=== PATIENT | male | born 2000 | race Caucasian/White ===

== ENCOUNTER → 2023-11-14 | Emergency (ER) | payer SELFPAY ==
[~2023-11-14] MED LIST: DOXYCYCLINE 100 MG CAP PO ONE; IBUPROFEN 400 MG TAB ONE; LIDOCAINE 1% 20 ML MDV ONE; ONDANSETRON 4 MG (ODT) TAB ONE; metroNIDAZOLE 500 MG TABLET ONE
--- NOTE | 2023-11-14 20:29 | EDPHYS ---
Physician Documentation [facility] Name: Yumiko Ayala Age: 23 yrs Sex: Male : 2000 Arrival Date: 11/14/2023 Time: 19:00 Bed 16 Private MD: ED Physician Kaleb Jones HPI: 11/14 19:12 This 23 yrs old Male presents to ER via Unassigned with complaints of Finger sp4 Problem. 19:19 Left thumb nail puncture wound by the shrimp on Wednesday 6 days ago. . sp4 20:56 23-year-old male presents with a left thumb pain, 6 days ago left thumbnail was sp4 punctured by a shrimp horn and caused infected puncture wound with pain some swelling and pocket of purulence under the thumbnail. . Historical: - Allergies: 19:13 No Known Allergies; cm10 - Home Meds: 19:13 None [Active]; cm10 - PMHx: 19:13 None; cm10 - PSHx: 19:13 None; cm10 - Immunization history:: Adult Immunizations unknown. - Social history:: Smoking status: Reported history of juuling and/or vaping. - Family history:: not pertinent. ROS: 20:56 Constitutional: Negative for fever, chills, and weight loss, MS/Extremity: Positive sp4 Left thumb pain and swelling , left thumb nail puncture wound with infection 20:56 All other systems are negative, Exam: 20:56 Constitutional: This is a well developed, well nourished patient who is awake, alert, sp4 and in no acute distress. Head/Face: Normocephalic, atraumatic. Eyes: Pupils equal round and reactive to light, extra-ocular motions intact. Lids and lashes normal. Conjunctiva and sclera are not injected. Cornea within normal limits. Periorbital areas with no swelling, redness, or edema. ENT: Nares patent. No nasal discharge, no septal abnormalities noted. Tympanic membranes are normal and external auditory canals are clear. Oropharynx with no redness, swelling, or masses, exudates, or evidence of obstruction, uvula midline. Mucous membranes moist. Neck: Trachea midline, no thyromegaly or masses palpated, and no cervical lymphadenopathy. Supple, full range of motion without nuchal rigidity, or vertebral point tenderness. Chest/axilla: Normal chest wall appearance and motion. Nontender with no deformity. No lesions are appreciated. Cardiovascular: Regular rate and rhythm with a normal S1 and S2. No gallops, murmurs, or rubs. Normal PMI, no JVD. No pulse deficits. Respiratory: Lungs have equal breath sounds bilaterally, clear to auscultation and percussion. No rales, rhonchi or wheezes noted. No increased work of breathing, no retractions or nasal flaring. Abdomen/GI: Soft, non-tender, with normal bowel sounds. No distension or tympany. No guarding or rebound. No evidence of tenderness throughout. Back: No spinal tenderness. No costovertebral tenderness. There is sacral decubitus ulcer that is covered by the wound VAC. Skin: Warm, dry with normal turgor. Normal color with no rashes, no lesions, and no evidence of cellulitis. MS/ Extremity: Pulses equal, no cyanosis. Neurovascular intact. Full, normal range of motion. Left thumbnail with a puncture wound and pocket of purulence underneath left thumbnail. Associated pain and tenderness of the left thumb Neuro: Awake and alert, GCS 15, oriented to person, place, time, and situation. Cranial nerves II-XII grossly intact. Motor strength 5/5 in all extremities. Sensory grossly intact. Psych: Awake, alert, with orientation to person, place and time. Behavior, mood, and affect are within normal limits Vital Signs: 19:12 BP 167 / 82; Pulse 84; Resp 18; Temp 99.5; Pulse Ox 99% on R/A; Weight 83.01 kg; Height cm10 5 ft. 9 in. ; Pain 7/10; 19:12 Body Mass Index 27.02 (83.01 kg, 175.26 cm) cm10 19:12 Pain Scale: Adult cm10 Procedures: 20:25 I \T\ D: Incision and drainage was performed for an abscess of the left Left thumb nail sp4 puncture wound with shrimp horn under the thumb nail and small focus of purulence under the Left thumb nail, Thumb nail removal with digital Lidocaine block Prepped with Betadine, Anesthetized with 10 ml's 1% Lidocaine. Incised with Scissors and thumb nail removal with hemostats . Drained small amount purulent fluid. Abscess cavity explored. Packed with Kerlix Wrap . Dressing: sterile 4x4 gauze, Kerlix dressing the patient tolerated the procedure well, Wound care instructions provided . MDM: 19:13 Patient medically screened. sp4 20:25 Differential Diagnosis altered mental status, sepsis, flu, Thumb abscess , puncture sp4 wound with infection . Data reviewed: vital signs, nurses notes. ED course: Patient actually had a small piece of cerumen performed stuck under the left thumbnail. This has because infectious process under the left thumbnail. Thumbnail was removed and a small piece of show important was evacuated as well as irrigation provided with a small purulent pocket. Patient advised to perform dressing changes daily will provide prescription for Flagyl and doxycycline for the next 10 days. 11/14 19:18 Order name: Dressing - Wound; Complete Time: 19:50 sp4 11/14 19:18 Order name: Gloves, Sterile; Complete Time: 19:50 sp4 11/14 19:18 Order name: Setup Suture Tray; Complete Time: 19:50 sp4 Administered Medications: 19:56 Drug: metroNIDAZOLE PO 500 mg PO once Route: PO; rv 20:28 Follow up: Response: No adverse reaction rv 19:56 Drug: Ibuprofen PO 800 mg PO once Route: PO; rv 20:27 Follow up: Response: No adverse reaction rv 19:56 Drug: Ondansetron PO 4 mg PO once Route: PO; rv 20:27 Follow up: Response: No adverse reaction rv 19:57 Drug: Doxycycline PO 100 mg PO once Route: PO; rv 20:28 Follow up: Response: No adverse reaction rv 20:28 Drug: Lidocaine Infiltration (1 %) 20 ml 20 ml Infiltration once; to bedside {Note: rv admoinistered by Dr Jones.} Volume: 20 ml; Route: Infiltration; Disposition Summary: 11/14/23 20:29 Discharge Ordered Notes: Location: Home sp4 Problem: new sp4 Symptoms: have improved sp4 Condition: Stable sp4 Diagnosis - Acute paronychia left thumbnail, left thumbnail puncture wound with infection sp4 Followup: sp4 - With: Tu Del Toro DO - When: 7 - 10 days - Reason: Recheck today's complaints Discharge Instructions: - Discharge Summary Sheet sp4 - Paronychia, [id number] sp4 Forms: - Patient Portal Instructions sp4 Prescriptions: - Flagyl 500 mg Oral Tablet - take 1 tablet ORAL route every 8 hours for 10 days; 30 tablet; Refills: 0, sp4 Product Selection Permitted - Ibuprofen 800 mg Oral Tablet - take 1 tablet ORAL route every 8 hours As needed take with food; 30 tablet; sp4 Refills: 0, Product Selection Permitted - Zofran 4 mg Oral tablet - take 1 tablet ORAL route every 6 hours As needed PRN nausea; 30 tablet; sp4 Refills: 0, Product Selection Permitted - Doxycycline Monohydrate 100 mg Oral Tablet - take 1 tablet ORAL route every 12 hours for 10 days; 20 tablet; Refills: 0, sp4 Product Selection Permitted Signatures: Ben Cortés RN RN rv Kaleb Jones MD MD sp4 Judy Ramos RN RN cm10
--- NOTE | 2023-11-14 20:29 | ER ---
Nurse's Notes [facility] Name: Yumiko Ayala Age: 23 yrs Sex: Male : 2000 Arrival Date: 11/14/2023 Time: 19:00 Bed 16 Private MD: Diagnosis: Acute paronychia left thumbnail, left thumbnail puncture wound with infection Presentation: 11/14 19:12 Chief complaint: Patient states: Shell of shrimp stabbed through nail of left thumb on cm10 Wednesday. Pt reports increased pain. Coronavirus screen: Vaccine status: Patient reports being unvaccinated. Client denies travel out of the [place] in the last 14 days. Ebola Screen: Patient denies travel to an Ebola-affected area in the 21 days before illness onset. No symptoms or risks identified at this time. Initial Sepsis Screen: Does the patient meet any 2 criteria? No. Patient's initial sepsis screen is negative. Does the patient have a suspected source of infection? No. Patient's initial sepsis screen is negative. Risk Assessment: Do you want to hurt yourself or someone else? Patient reports no desire to harm self or others. Onset of symptoms was November 14, 2023. 19:12 Method Of Arrival: Ambulatory cm10 19:12 Acuity: ANGEL 4 cm10 Triage Assessment: 19:14 General: Appears in no apparent distress. comfortable, Behavior is calm, cooperative. cm10 Pain: Complains of pain in left thumbnail Pain does not radiate. Pain currently is 7 out of 10 on a pain scale. Quality of pain is described as sharp, shooting. EENT: No deficits noted. No signs and/or symptoms were reported regarding the EENT system. Neuro: No deficits noted. Level of Consciousness is awake, alert, obeys commands, Oriented to person, place, time, situation. Cardiovascular: No deficits noted. Denies chest pain, shortness of breath, Patient's skin is warm and dry. Respiratory: No deficits noted. Airway is patent Respiratory effort is even, unlabored, Respiratory pattern is regular, symmetrical. GI: No deficits noted. No signs and/or symptoms were reported involving the gastrointestinal system. : No deficits noted. No signs and/or symptoms were reported regarding the genitourinary system. Derm: No deficits noted. No signs and/or symptoms reported regarding the dermatologic system. Musculoskeletal: No deficits noted. No signs and/or symptoms reported regarding the musculoskeletal system. Historical: - Allergies: 19:13 No Known Allergies; cm10 - Home Meds: 19:13 None [Active]; cm10 - PMHx: 19:13 None; cm10 - PSHx: 19:13 None; cm10 - Immunization history:: Adult Immunizations unknown. - Social history:: Smoking status: Reported history of juuling and/or vaping. - Family history:: not pertinent. Screenin:26 [facility] ED Fall Risk Assessment (Adult) History of falling in the last 3 months, rv including since admission No falls in past 3 months (0 pts) Score/Fall Risk Level 0 - 2 = Low Risk Oriented to surroundings, Maintained a safe environment, Educated pt \T\ family on fall prevention, incl call for assistance when getting out of bed, Assessed \T\ reinforced patient's understanding of fall precautions. Abuse screen: Denies threats or abuse. Denies injuries from another. Nutritional screening: No deficits noted. Tuberculosis screening: No symptoms or risk factors identified. Vital Signs: 19:12 BP 167 / 82; Pulse 84; Resp 18; Temp 99.5; Pulse Ox 99% on R/A; Weight 83.01 kg; Height cm10 5 ft. 9 in. ; Pain 7/10; 19:12 Body Mass Index 27.02 (83.01 kg, 175.26 cm) cm10 19:12 Pain Scale: Adult cm10 ED Course: 19:02 Patient arrived in ED. rg4 19:11 Kaleb Jones MD is Attending Physician. sp4 19:13 Triage completed. cm10 19:15 Arm band placed on Patient placed in an exam room. cm10 19:16 Ben Cortés, ISABEL is Primary Nurse. rv 20:26 Patient has correct armband on for positive identification. Client placed on continuous rv cardiac and pulse oximetry monitoring. NIBP monitoring applied. 20:26 Assist provider with I \T\ D: of an abscess on left 1st digit, hand Set up I\T\D tray. rv Performed by Kaleb Jones MD Dressing with ABD pad, Patient tolerated well. Patient did not have IV access during this emergency room visit. 20:28 Tu Del Toro DO is Referral Physician. sp4 Administered Medications: 19:56 Drug: metroNIDAZOLE PO 500 mg PO once Route: PO; rv 20:28 Follow up: Response: No adverse reaction rv 19:56 Drug: Ibuprofen PO 800 mg PO once Route: PO; rv 20:27 Follow up: Response: No adverse reaction rv 19:56 Drug: Ondansetron PO 4 mg PO once Route: PO; rv 20:27 Follow up: Response: No adverse reaction rv 19:57 Drug: Doxycycline PO 100 mg PO once Route: PO; rv 20:28 Follow up: Response: No adverse reaction rv 20:28 Drug: Lidocaine Infiltration (1 %) 20 ml 20 ml Infiltration once; to bedside {Note: rv admoinistered by Dr Jones.} Volume: 20 ml; Route: Infiltration; Medication: 20:26 VIS not applicable for this client. rv Outcome: 20:26 Discharged to home ambulatory, rv 20:26 Condition: good 20:26 Discharge instructions given to patient, Instructed on discharge instructions, follow up and referral plans. medication usage, wound care, Demonstrated understanding of instructions, follow-up care, medications, Prescriptions given X 2, 20:29 Discharge ordered by sp4 20:35 Patient left the ED. rv Signatures: Jaki Galvan rg4 Ben Cortés RN RN Kaleb Silva MD MD sp4 Judy Ramos RN RN cm10
[2023-11-14 21:47] VITALS: BP 167/82; TEMP 99.5; O2SAT 99
== END ==
LOC: ER 19:00
PROC: 0H9QXZZ Drainage of Finger Nail, External Approach (ICD-10-PCS; principal; 2023-11-14)
DX: L03.012 Cellulitis of left finger (principal)
CPT/HCPCS: 99284; J2001; Q0162

== ENCOUNTER 2024-10-29 16:32 | Emergency (ER) | payer SELFPAY ==
--- OUTSIDE RECORDS SUMMARY | 2024-10-29 16:34 | XMS REPORT | Continuity of Care Document ---
Author Name Unknown Address [address] [facility] [address] [place] [address] [facility] thconnect Address [address] [facility] 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 Name Role Phone Pcp, Patient Does Not Have A Primary Care Physic lizbeth RINA VENTURA Attending Clinician Unavailable Rina Rosales Attending Clinician [phone] Doctor Unassigned, [place] Attending Clinician U Giovanna Newell DO Attending Clinician [phone] Problems Condition Name Condition Details Condition Category Status Onset Date Resolution Date Last Treatment Date Treating Clinician Comments Source No known active problems No known active problems Disease [facility] Allergies, Adverse Reactions, Alerts Allergy Name Allergy Type Status Severity Reaction(s) Onset Date Inactive Date Treating Clinician Comments Source NO KNOWN ALLERGIE S Drug Class Active [facility] Social History Social Habit Start Date Stop Date Quantity Comments Source Exposure to SARS-CoV-2 (event) Not sure [facility] Sex Assigned At 2000 00:00:00 2000 00:00:00 [facility] Smoking Status Start Date Stop Date Source Unknown if ever smoked [facility] Medications Ordered Medication Name Filled Medication Name Start Date Stop Date Current Medication? Ordering Clinician Indication Dosage Frequency Signature (SIG) Comments Components Source dicyclomine (BENTYL) injection 20 mg 01-13 21:30: 00 01-13 20:45 :00 No 20mg 20 mg, Intramuscu lar, ONCE NOW, 1 dose, On Wed01/13/22 at 1630, [facility] ondansetron (ZOFRAN (PF)) injection 4 mg 01-13 21:30: 00 01-13 20:53 :00 No 4mg 4 mg, Slow IV Push, ONCE, 1 dose, On Wed01/13/22 at 1630, [facility] NaCl 0.9% (NS) bolus infusion 1,000 mL 01-13 21:30: 00 01-13 22:10 :00 No 1000mL at 999 mL/hr, 1,000 mL, IV Infusion, ONCE, 1 dose, On Wed01/13/22 at 1630, [facility] dicyclomine 20 mg tablet 01-13 00:00: 00 Yes [id number] 20mg Take 1 tablet by mouth 4 (four) times daily as needed for Abdominal pain. [facility] ondansetron 4 mg disintegrat ing tablet 01-13 00:00: 00 Yes [id number] 4mg Take 1 tablet by mouth every 8 (eight) hours as needed for Nausea and Vomiting (N/V). [facility] ketorolac (TORADOL) injection 15 mg 2020-11 17:00: 00 08-06 16:59 :00 No 15mg 15 mg, Slow IV Push, Q6H, 4 doses, First dose on Wed08/05/21 at 1200, Last dose on Wed08/06/21 at 0600, Routine
fast food team member approving Restricted medication : GIOVANNA THAPA [facility] cefTRIAXone (ROCEPHIN) 1,000 mg in NaCl 0.9% (NS) 50 mL MINI-BAG 2020-11 005 14:15: 00 08-05 13:55 :00 No 1000mg 1,000 mg, IV Piggyback, ONCE, 1 dose, On Wed08/05/21 at 0915, Administer over 30 Minutes, 50 mL
Reas on for Anti-Infec tive: Empiric Therapy for Suspected Infection< br>Empiric Therapy Site: Joint
D uration of therapy: 72 hours [facility] naproxen sodium (ANAPROX DS) 550 mg tablet 2020-11 0 00:00: 00 Yes [id number] 550mg Take 1 tablet by mouth 2 (two) times daily with meals. [facility] methylPREDN ISolone (MEDROL, RAHUL,) 4 mg tablets 2020-11 0 00:00: 00 Yes [id number] Take by mouth SEE-INSTRU CTIONS. follow package directions [facility] clindamycin 150 mg capsule 2020-11 0 00:00: 00 08-13 04:59 :00 No [id number] 300mg Take 2 capsules by mouth 4 (four) times daily for 7 days. [facility] Vital Signs Vital Name Observation Time Observation Value Comments S dedepedro Systolic blood pressure 2022-01-13 22:52:00 126 mm[Hg] [facility] Diastolic blood pressure 2022-01-13 22:52:00 68 mm[Hg] [facility] Respiratory rate 2022-01-13 22:52:00 18 /min [facility] Oxygen saturation in Arterial blood by Pulse oximetry 2022-01-13 22:52:00 100 /min [facility] Heart rate 2022-01-13 20:07:00 82 /min [facility] Body temperature 2022-01-13 20:07:[address] [facility] Body height 2022-01-13 20:07:00 69 cm [facility] Body weight 2022-01-13 20:07:00 74.844 kg [facility] BMI 2022-01-13 20:07:00 157.21 kg/m2 [facility] Heart rate 2021-08-05 15:00:00 50 /min [facility] Oxygen saturation in Arterial blood by Pulse oximetry 2021-08-05 15:00:00 100 /min [facility] Systolic blood pressure 2021-08-05 14:00:00 125 mm[Hg] [facility] Diastolic blood pressure 2021-08-05 14:00:00 63 mm[Hg] [facility] Body temperature 2021-08-05 12:40:[address] [facility] Respiratory rate 2021-08-05 12:40:00 16 /min [facility] Body weight 2021-08-05 12:40:00 79.379 kg [facility] Procedures Procedure Date / Time Performed Performing Clinician Source LIPASE 2022-01-13 20:54:00 Rina Ventura [facility] COMP. METABOLIC PANEL ([id number]) 2022-01-13 20:54:[address] [facility] CBC WITH DIFF 2022-01-13 20:54:00 Rina Ventura [facility] URINALYSIS 2022-01-13 20:54:00 Rina Ventura [facility] RAPID INFLUENZA A/B 2022-01-13 20:54:[address] [facility] NOTICE OF PRIVACY PRACTICES 2022-01-13 20:01:57 Doctor Unassigned, [place] [facility] CONSENT/REFUSAL FOR DIAGNOSIS AND TREATMENT 2022-01-13 20:01:41 Doctor Unassigned, [place] [facility] COMP. METABOLIC PANEL ([id number]) 2021-08-05 15:57:[address] [facility] VA ARTHROCENTESIS ASPIR&/INJ MAJOR JT/BURSA W/O US 2021-08-05 13:42:[address] [facility] CBC WITH DIFF 2021-08-05 13:24:00 Giovanna Thapa [facility] BODY FLUID DIRECT COUNT 2021-08-05 13:24:[address] [facility] XR KNEE <3 VW LEFT 2021-08-05 12:59:[address] [facility] NOTICE OF PRIVACY PRACTICES 2021-08-05 12:33:10 Doctor Unassigned, [place] [facility] CONSENT/REFUSAL FOR DIAGNOSIS AND TREATMENT 2021-08-05 12:32:50 Doctor Unassigned, [place] [facility] Encounters Start Date/Time End Date/Time Encounter Type Admission Type Attending Clinicians Care Facility Care Department Encounter ID Source 2023-11-11 15:49:30 2023-11-11 15:49:30 Outpatient [facility] [id number] Jorge Beckford 2023-08-30 09:16:32 2023-08-30 09:16:32 Outpatient [facility] [id number] Jorge Beckford 2022-01-13 15:08:00 2022-01-13 18:00:00 Emergency X RINA VENTURA [facility] ERT [id number] [facility] 2022-01-13 15:08:00 2022-01-13 18:00:00 Emergency Rina Ventura [facility] [id number] [facility] 2022-01-13 00:00:00 2022-01-13 00:00:00 Orders Only Doctor Unassigned, [place] [facility] [id number] [facility] 2021-08-05 07:44:00 2021-08-05 12:16:00 Emergency Giovanna Thapa [facility] [id number] [facility] 2021-08-05 07:33:00 2021-08-05 07:33:00 Emergency X [facility] ERT [id number] [facility] Results Test Description Test Time Test Comments Results Result Co mments Source HERPES SIMPLEX 1/2 AB, IgG [id number] 03:05:31* Test Item Value Reference Range Interpretation Comme nts HERPES SIMPLEX 1 AB, IgG (test code = 00108) 6.170 INDEX SEE BELOW H INTERPRETATION U NITS RANGE ----- ----- NON-REACTIVE INDEX <1.000 REACTIVE INDEX >=1.000 HERPES SIMPLEX 2 AB, IgG (test code = 91120) 0.068 INDEX SEE BELOW INTERPRETATION U NITS RANGE ----- ----- NON-REACTIVE INDEX <1.000 REACTIVE INDEX >=1.000 UNLESS OTHERWISE INDICATED, ALL TESTING PERFORMED AT [facility] [address] [place] [address] MANAGER NURSING HOME: SHANA LOUIS M.D. [place] NUMBER [id number] [facility] [place]. [id number] COMP. METABOLIC PANEL ([id number])2022-01-13 21:19:56* Test Item Value Reference Range Interpretation Comme nts NA (test code = 0241247127) 135 mmol/L 135-145 K (test code = 1336426436) 4.8 mmol/L 3.5-5.0 CL (test code = 9558561763) 103 mmol/L 98-108 CO2 TOTAL (test code = 0177537590) 24 mmol/L 23-31 AGAP (test code = 3477682402) 2-16 BUN (test code = 4570842340) 14 mg/dL 7-23 GLUCOSE (test code = 7249461473) 93 mg/dL 70-110 CREATININE (test code = 6881046118) 0.75 mg/dL 0.60-1.25 TOTAL BILI (test code = 5742495886) 0.4 mg/dL 0.1-1.1 CALCIUM (test code = 6269326411) 8.6 mg/dL 8.6-10.6 T PROTEIN (test code = 1079328298) 6.8 g/dL 6.3-8.2 ALBUMIN (test code = 1844054362) 4.4 g/dL 3.5-5.0 ALK PHOS (test code = 2369550629) 56 U/L 34-122 ALTv (test code = 1742-6) 21 U/L 5-50 AST(SGOT) (test code = 9617289617) 29 U/L 13-40 eGFR (test code = 7441802160) mL/min/1.73m2 JUAN (test code = JUAN) Association of Glomerular Filtration Rate (GFR) and Staging of Kidney Disease* + + +- +| GFR (mL/min/1.73 m2) ?| With Kidney Damage ?| ?Without Kidney Damage+ ------+ ----+ ------+| ?>90 ?| ?Stage one ?| ? Normal ?+ -+ + -+| ?60-89 ?| ?Stage two ?| ? Decreased GFR ? + + +- +| ?30-59 ?| ?Stage three ?| ? Stage three ? + + +- +| ?15-29 ?| ?Stage four ? | ? Stage four ?+ -+ + -+| ?<15 (or dialysis) ? ?| ?Stage five ? | ? Stage five ?+ -+ + -+ *Each stage assumes the associated GFR level has been in effect for at least three months. ?Stages 1 to 5, with or without kidney disease, indicate chronic kidney disease. Notes: Determination of stages one and two (with eGFR >59mL/min/1.73 m2) requires estimation of kidney damage for at least three months as defined by structural or functional abnormalities of the kidney, manifested by either:Pathological abnormalities or Markers of kidney damage (including abnormalities in the composition of the blood or urine or abnormalities in imaging tests). [facility] 21:18:51* Test Item Value Reference Range Interpretation Comme nts LIPASE (test code = 2341852158) 97 U/L 0-220 Lab Interpretation (test cod e = 17003-2) Normal [facility] [id number] 21:07:51* Test Item Value Reference Range Interpretation Comme nts WBC (test code = 6690-2) See_Comment [Automated [employer]] The system which generated this result transmitted reference range: 4.20 - 10.70 10*3/?L. The reference range was not used to interpret this result as normal/abnormal. RBC (test code = 789-8) See_Comment [Automated [employer]] The system which generated this result transmitted reference range: 4.26 - 5.52 10*6/?L. The reference range was not used to interpret this result as normal/abnormal. HGB (test code = 718-7) 13.3 g/dL 12.2-16.4 HCT (test code = 4544-3) 38.2 % 38.4-49.3 L MCV (test code = 787-2) 89.3 fL 81.7-95.6 MCH (test code = 785-6) 31.1 pg 26.1-32.7 MCHC (test code = 786-4) 34.8 g/dL 31.2-35.0 RDW-SD (test code = 24608-3) 40.4 fL 38.5-51.6 RDW-CV (test code = 788-0) 12.3 % 12.1-15.4 PLT (test code = 777-3) See_Comment [Automated messa ge] The system which generated this result transmitted reference range: 150 - 328 10*3/?L. The reference range was not used to interpret this result as normal/abnormal. MPV (test code = 17794-0) 9.5 fL 9.8-13.0 L NRBC/100 WBC (test code = 1103215964) See_Comment [Automated [employer] ssage] The system which generated this result transmitted reference range: 0.0 - 10.0 /100 WBCs. The reference range was not used to interpret this result as normal/abnormal. NRBC x10^3 (test code = 8750673823) <0.01 See_Comment [Automated messa ge] The system which generated this result transmitted reference range: 10*3/?L. The reference range was not used to interpret this result as normal/abnormal. GRAN MAT (NEUT) % (test code = 770-8) 47.5 % IMM GRAN % (test code = 5472351039) 0.20 % LYMPH % (test code = 736-9) 38.7 % MONO % (test code = 5905-5) 10.2 % EOS % (test code = 713-8) 3.2 % BASO % (test code = 706-2) 0.2 % GRAN MAT x10^3(ANC) (test code = 4166050862) 2.38 10*3/uL 1.99-6.95 IMM GRAN x10^3 (test code = 5964836505) <0.03 0.00-0.06 LYMPH x10^3 (test code = 731-0) 1.94 10*3/uL 1.09-3.23 MONO x10^3 (test code = 742-7) 0.51 10*3/uL 0.36-1.02 EOS x10^3 (test code = 711-2) 0.16 10*3/uL 0.06-0.53 BASO x10^3 (test code = 704-7) <0.03 0.01-0.09 Lab Interpretation (test code = 84730-0) Abnormal [facility]. METABOLIC PANEL ([id number])2021-08-05 16:30:23* Test Item Value Reference Range Interpretation Comme nts NA (test code = 1815109205) 140 mmol/L 135-145 K (test code = 2453963627) 3.9 mmol/L 3.5-5.0 CL (test code = 8863058226) 111 mmol/L 98-108 H CO2 TOTAL (test code = 6321573157) 22 mmol/L 23-31 L AGAP (test code = 2316885298) 2-16 BUN (test code = 3576481235) 12 mg/dL 7-23 GLUCOSE (test code = 4812643634) 88 mg/dL 70-110 CREATININE (test code = 7121397380) 0.54 mg/dL 0.60-1.25 L TOTAL BILI (test code = 4945322411) 0.4 mg/dL 0.1-1.1 CALCIUM (test code = 0112180235) 7.7 mg/dL 8.6-10.6 L T PROTEIN (test code = 7864443030) 6.0 g/dL 6.3-8.2 L ALBUMIN (test code = 6827697848) 3.5 g/dL 3.5-5.0 ALK PHOS (test code = 2498723863) 55 U/L 34-122 ALTv (test code = 1742-6) 19 U/L 5-50 AST(SGOT) (test code = 4274252780) 25 U/L 13-40 eGFR (test code = 1530271468) mL/min/1.73m2 UJAN (test code = JUAN) Association of Glomerular Filtration Rate (GFR) and Staging of Kidney Disease* + --+ --+ ------+| GFR (mL/min/1.73 m2) ?| With Kidney Damage ?| ?Without Kidney Damage+ --------+ --------+ +| ?>90 ?| ?Stage one ?| ? Normal ?+ ---+ ---+ -------+| ?60-89 ?| ?Stage two ?| ? Decreased GFR ? + --+ --+ ------+| ?30-59 ?| ?Stage three ?| ? Stage three ? + --+ --+ ------+| ?15-29 ?| ?Stage four ? | ? Stage four ?+ ---+ ---+ -------+| ?<15 (or dialysis) ? ?| ?Stage five ? | ? Stage five ?+ ---+ ---+ -------+ *Each stage assumes the associated GFR level has been in effect for at least three months. ?Stages 1 to 5, with or without kidney disease, indicate chronic kidney disease. Notes: Determination of stages one and two (with eGFR >59mL/min/1.73 m2) requires estimation of kidney damage for at least three months as defined by structural or functional abnormalities of the kidney, manifested by either:Pathological abnormalities or Markers of kidney damage (including abnormalities in the composition of the blood or urine or abnormalities in imaging tests). Lab Interpretation (test code = 82754-0) Abnormal [facility] WITH [id number] 15:18:50* Test Item Value Reference Range Interpretation Comme nts WBC (test code = 6690-2) See_Comment [Automated [employer]] The system which generated this result transmitted reference range: 4.20 - 10.70 10*3/?L. The reference range was not used to interpret this result as normal/abnormal. RBC (test code = 789-8) See_Comment L [Automated [employer]] The system which generated this result transmitted reference range: 4.26 - 5.52 10*6/?L. The reference range was not used to interpret this result as normal/abnormal. HGB (test code = 718-7) 12.8 g/dL 12.2-16.4 HCT (test code = 4544-3) 37.6 % 38.4-49.3 L MCV (test code = 787-2) 91.3 fL 81.7-95.6 MCH (test code = 785-6) 31.1 pg 26.1-32.7 MCHC (test code = 786-4) 34.0 g/dL 31.2-35.0 RDW-SD (test code = 94700-8) 41.1 fL 38.5-51.6 RDW-CV (test code = 788-0) 12.4 % 12.1-15.4 PLT (test code = 777-3) See_Comment [Automated messa ge] The system which generated this result transmitted reference range: 150 - 328 10*3/?L. The reference range was not used to interpret this result as normal/abnormal. MPV (test code = 82912-6) 10.1 fL 9.8-13.0 NRBC/100 WBC (test code = 4810648931) See_Comment [Automated [employer] ssage] The system which generated this result transmitted reference range: 0.0 - 10.0 /100 WBCs. The reference range was not used to interpret this result as normal/abnormal. NRBC x10^3 (test code = 7824882150) <0.01 See_Comment [Automated messa ge] The system which generated this result transmitted reference range: 10*3/?L. The reference range was not used to interpret this result as normal/abnormal. GRAN MAT (NEUT) % (test code = 770-8) 70.3 % IMM GRAN % (test code = 9339554558) 0.30 % LYMPH % (test code = 736-9) 16.1 % MONO % (test code = 5905-5) 11.6 % EOS % (test code = 713-8) 1.5 % BASO % (test code = 706-2) 0.2 % GRAN MAT x10^3(ANC) (test code = 3918500089) 6.06 10*3/uL 1.99-6.95 IMM GRAN x10^3 (test code = 4233433478) 0.03 10*3/uL 0.00-0.06 LYMPH x10^3 (test code = 731-0) 1.39 10*3/uL 1.09-3.23 MONO x10^3 (test code = 742-7) 1.00 10*3/uL 0.36-1.02 EOS x10^3 (test code = 711-2) 0.13 10*3/uL 0.06-0.53 BASO x10^3 (test code = 704-7) <0.03 0.01-0.09 Lab Interpretation (test code = 15471-4) Abnormal [facility]"
[2024-10-29] MEDS ORDERED: IBUPROFEN 200 MG TAB PO ONE (17:22)
[2024-10-29] MEDS ORDERED: IBUPROFEN 400 MG TAB ONE (17:22)
--- NOTE | 2024-10-29 18:06 | RAD REPORT ---
EXAM: Hand Right 3 View HISTORY: Pain;Swelling COMPARISON: 05/17/2024 FINDINGS: Bones: No acute fracture identified. Alignment:No significant malalignment. Degenerative changes:None significant. Other: n/a IMPRESSION: No evidence of acute osseous abnormality involving the imaged hand.
--- NOTE | 2024-10-29 18:09 | ER ---
Nurse's Notes [facility] Name: Yumiko Ayala Age: 24 yrs Sex: Male : 2000 Arrival Date: 10/29/2024 Time: 16:32 Bed DX1 Private MD: Diagnosis: Contusion of right hand Presentation: 10/29 17:02 Chief complaint: Patient states: punched something with right hand, now painful and tm6 swollen. Coronavirus screen: Client denies travel out of the [place] in the last 14 days. Ebola Screen: Patient negative for fever greater than or equal to 101.5 degrees Fahrenheit, and additional compatible Ebola Virus Disease symptoms Patient denies exposure to infectious person. Patient denies travel to an Ebola-affected area in the 21 days before illness onset. No symptoms or risks identified at this time. Initial Sepsis Screen: Does the patient meet any 2 criteria? No. Patient's initial sepsis screen is negative. Does the patient have a suspected source of infection? No. Patient's initial sepsis screen is negative. Risk Assessment: Do you want to hurt yourself or someone else? Patient reports no desire to harm self or others. Onset of symptoms was October 29, 2024. 17:02 Method Of Arrival: Ambulatory tm6 17:02 Acuity: ANGEL 4 tm6 Triage Assessment: 17:03 General: Appears in no apparent distress. Behavior is calm, cooperative. Pain: tm6 Complains of pain in right hand Pain currently is 5 out of 10 on a pain scale. EENT: No signs and/or symptoms were reported regarding the EENT system. Neuro: Level of Consciousness is awake, alert, obeys commands, Oriented to person, place, time, situation. Cardiovascular: Patient's skin is warm and dry. Respiratory: Airway is patent Respiratory effort is even, unlabored, Respiratory pattern is regular, symmetrical. GI: No signs and/or symptoms were reported involving the gastrointestinal system. Abdomen is flat, non-distended. : No signs and/or symptoms were reported regarding the genitourinary system. Derm: No signs and/or symptoms reported regarding the dermatologic system. Musculoskeletal: Reports pain in right hand Pain is 5 out of 10 on a pain scale. Historical: - Allergies: 17:03 No Known Allergies; tm6 - PMHx: 17:03 None; tm6 - PSHx: 17:03 None; tm6 - Immunization history:: Flu vaccine is not up to date. - Infectious Disease History:: Denies. - Social history:: Smoking status: Reported history of juuling and/or vaping. Screenin:29 [facility] ED Fall Risk Assessment (Adult) History of falling in the last 3 months, tm6 including since admission No falls in past 3 months (0 pts) Confusion or Disorientation No (0 pts) Intoxicated or Sedated No (0 pts) Impaired Gait No (0 pts) Mobility Assist Device Used No (0 pt) Altered Elimination No (0 pt) Score/Fall Risk Level 0 - 2 = Low Risk Oriented to surroundings, Maintained a safe environment, Educated pt \T\ family on fall prevention, incl call for assistance when getting out of bed. Abuse screen: Denies threats or abuse. Denies injuries from another. Nutritional screening: No deficits noted. Tuberculosis screening: No symptoms or risk factors identified. Assessment: 18:29 Reassessment: see triage assessment. tm6 Vital Signs: 17:02 BP 138 / 66; Pulse 59; Resp 18; Temp 98.5; Pulse Ox 98% on R/A; MAP 85 mmHg; Weight tm6 86.18 kg; Height 5 ft. 10 in. ; Pain 5/10; 18:29 BP 135 / 60; Pulse 55; Resp 18; Temp 98.5; Pulse Ox 98% on R/A; Pain 2/10; tm6 17:02 Body Mass Index 27.26 (86.18 kg, 177.8 cm) tm6 17:02 Pain Scale: Adult tm6 18:29 Pain Scale: Adult tm6 ED Course: 16:33 Patient arrived in ED. im 16:58 Lizbet Lazcano FNP-C [facility] kb 16:58 Gerard Cope MD is Attending Physician. kb 17:03 Triage completed. tm6 17:03 Arm band placed on left wrist. tm6 17:59 Hand Right 3 View XRAY In Process Unspecified. EDMS 18:32 Patient has correct armband on for positive identification. Provided Education on: tm6 compression, elevate, and ice right hand. 18:32 No provider procedures requiring assistance completed. Patient did not have IV access tm6 during this emergency room visit. Administered Medications: 17:31 Drug: Ibuprofen PO 600 mg PO once Route: PO; tm6 18:17 Follow up: Response: No adverse reaction Medication: 18:29 VIS not applicable for this client. tm6 Outcome: 18:08 Discharge ordered by . nicholas 18:32 Discharged to home ambulatory, tm6 18:32 Condition: stable 18:32 Discharge instructions given to patient, Instructed on discharge instructions, follow up and referral plans. Demonstrated understanding of instructions, follow-up care, 18:33 Patient left the ED. tm6 Signatures: Dispatcher [employer] EDLizbet Shafer, KRISTA-C STOCK SHE[employer] CLEANER INSPECTOR-Angie Dan, RN RN Amirah Dobbins Tawney, RN RN tm6
--- NOTE | 2024-10-29 18:09 | EDPHYS ---
Physician Documentation [facility] Name: Yumiko Ayala Age: 24 yrs Sex: Male : 2000 Arrival Date: 10/29/2024 Time: 16:32 Bed DX1 Private MD: ED Physician Gerard Cope HPI: 10/29 17:03 This 24 yrs old Male presents to ER via Unassigned with complaints of Hand Injury - kb right. 17:03 Pt is a 24 year old male who presents for right hand pain and swelling after using fist kb to strike something around 1030 this morning. Denies any other injuries. States he grabbed his hand after it happened and thinks the pushed his bone back into place. . Historical: - Allergies: 17:03 No Known Allergies; tm6 - PMHx: 17:03 None; tm6 - PSHx: 17:03 None; tm6 - Immunization history:: Flu vaccine is not up to date. - Infectious Disease History:: Denies. - Social history:: Smoking status: Reported history of juuling and/or vaping. ROS: 17:03 Constitutional: As per HPI kb Exam: 17:03 Constitutional: This is a well developed, well nourished patient who is awake, alert, kb and in no acute distress. Head/Face: Normocephalic, atraumatic. ENT: Moist Mucous membranes Cardiovascular: Regular rate Respiratory: Respirations even and unlabored. No increased work of breathing. Talking in full sentences Skin: Warm, dry with normal turgor. Normal color. Neuro: Awake and alert, GCS 15, oriented to person, place, time, and situation. 17:03 Musculoskeletal/extremity: Extremities: grossly normal except: noted in the dorsum of right hand: pain, swelling, tenderness, ROM: intact in all extremities, Circulation is intact in all extremities. Sensation intact. Vital Signs: 17:02 BP 138 / 66; Pulse 59; Resp 18; Temp 98.5; Pulse Ox 98% on R/A; MAP 85 mmHg; Weight tm6 86.18 kg; Height 5 ft. 10 in. ; Pain 5/10; 18:29 BP 135 / 60; Pulse 55; Resp 18; Temp 98.5; Pulse Ox 98% on R/A; Pain 2/10; tm6 17:02 Body Mass Index 27.26 (86.18 kg, 177.8 cm) tm6 17:02 Pain Scale: Adult tm6 18:29 Pain Scale: Adult tm6 MDM: 16:58 Medical Screening Exam initiated kb 17:04 Differential diagnosis: dislocation, closed fracture, contusion. Data reviewed: vital kb signs, nurses notes. 18:08 Independent interpretation of the following test(s) in the Emergency Department X-Ray: kb My interpretation is no fracture. Counseling: I had a detailed discussion with the patient and/or guardian regarding the historical points, exam findings, and any diagnostic results supporting the discharge/admit diagnosis, radiology results, the need for outpatient follow up, a orthopedic surgeon, to return to the emergency department if symptoms worsen or persist or if there are any questions or concerns that arise at home. 10/29 17:03 Order name: Hand Right 3 View XRAY; Complete Time: 18:07 kb 10/29 17:03 Order name: Ice pack; Complete Time: 17:21 kb 10/29 18:08 Order name: Trav Wrap; Complete Time: 18:29 kb Administered Medications: 17:31 Drug: Ibuprofen PO 600 mg PO once Route: PO; tm6 18:17 Follow up: Response: No adverse reaction ss Disposition: 19:48 Co-signature as Attending Physician, Gerard Cope MD I reviewed the patient's care rn provided by the Advanced Practice Provider and agree with the diagnosis and treatment plan. Disposition Summary: 10/29/24 18:08 Discharge Ordered Notes: Location: Home kb Condition: Stable kb Diagnosis - Contusion of right hand kb Followup: kb - With: Emergency Department - When: As needed - Reason: Worsening of condition Followup: kb - With: Private Physician - When: 2 - 3 days - Reason: Recheck today's complaints, Continuance of care, Re-evaluation by your physician Discharge Instructions: - Discharge Summary Sheet kb - Hand Contusion, [id number] kb Forms: - Medication Reconciliation Form kb - Antibiotic Education kb - Prescription Opioid Use kb - Patient Portal Instructions kb - Leadership Thank You Letter kb Signatures: Dispatcher [employer] Lizbet Castro, ROSAURAC KRISTA-Gerard Hickey MD MD rn Masterson, Tawney, RN RN 6 Angie Truong RN ss
[2024-10-29 18:38] VITALS: TEMP 98.5; O2SAT 98
[2024-10-29 18:40] VITALS: BP 135/60
== END 2024-10-29 18:33 | disposition home or self-care (01) ==
LOC: ER 16:32
DX: S60.221A Contusion of right hand, initial encounter (principal)
CPT/HCPCS: 99283

== ENCOUNTER 2025-01-22 18:10 | Emergency (ER) | payer OTHER, SELFPAY ==
--- OUTSIDE RECORDS SUMMARY | 2025-01-22 18:12 | XMS REPORT | Continuity of Care Document ---
Author Name Unknown Address [address] [place] [address] [facility] [place] Address [address] [place] [address] Care Team Providers Care [employer] Business [employer] Name Role Phone Pcp, Patient Does Not Have A Primary Care Physic lizbeth IRNA VENTURA Attending Clinician Unavailable Rina Rosales Attending Clinician [phone] Doctor Unassigned, Grandin Attending Clinician U Giovanna Newell DO Attending Clinician [phone] Problems Condition Name Condition Details Condition Category Status Onset Date Resolution Date Last Treatment Date Treating Clinician Comments Source No known active problems No known active problems Disease [facility] Allergies, Adverse Reactions, Alerts Allergy Name Allergy Type Status Severity Reaction(s) Onset Date Inactive Date Treating Clinician Comments Source NO KNOWN ALLERGIE S Drug Class Active [facility] Social History Social Habit Start Date Stop Date Quantity Comments Source Exposure to SARS-CoV-2 (event) Not sure [facility] Sex Assigned At 2000 00:00:00 2000 00:00:00 [facility] Smoking Status Start Date Stop Date Source Unknown if ever smoked [facility] Medications Ordered Medication Name Filled Medication Name Start Date Stop Date Current Medication? Ordering Clinician Indication Dosage Frequency Signature (SIG) Comments Components Source dicyclomine (BENTYL) injection 20 mg 01-13 21:30: 00 01-13 20:45 :00 No 20mg 20 mg, Intramuscu lar, ONCE NOW, 1 dose, On Wed01/13/22 at 1630, [facility] ondansetron (ZOFRAN (PF)) injection 4 mg 01-13 21:30: 00 01-13 20:53 :00 No 4mg 4 mg, Slow IV Push, ONCE, 1 dose, On Wed01/13/22 at 1630, [facility] NaCl 0.9% (NS) bolus infusion 1,000 mL 01-13 21:30: 00 01-13 22:10 :00 No 1000mL at 999 mL/hr, 1,000 mL, IV Infusion, ONCE, 1 dose, On Wed01/13/22 at 1630, [facility] dicyclomine 20 mg tablet 01-13 00:00: 00 Yes [id number] 20mg Take 1 tablet by mouth 4 (four) times daily as needed for Abdominal pain. [facility] ondansetron 4 mg disintegrat ing tablet 01-13 00:00: 00 Yes [id number] 4mg Take 1 tablet by mouth every 8 (eight) hours as needed for Nausea and Vomiting (N/V). [facility] ketorolac (TORADOL) injection 15 mg 2020-11 17:00: 00 08-06 16:59 :00 No 15mg 15 mg, Slow IV Push, Q6H, 4 doses, First dose on Wed08/05/21 at 1200, Last dose on Wed08/06/21 at 0600, Routine
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
Reas on for Anti-Infec tive: Empiric Therapy for Suspected Infection< br>Empiric Therapy Site: Joint
D uration of therapy: 72 hours [facility] naproxen sodium (ANAPROX DS) 550 mg tablet 2020-11 0 00:00: 00 Yes [id number] 550mg Take 1 tablet by mouth 2 (two) times daily with meals. [facility] methylPREDN ISolone (MEDROL, RAHUL,) 4 mg tablets 2020-11 0 00:00: 00 Yes [id number] Take by mouth SEE-INSTRU CTIONS. follow package directions [facility] clindamycin 150 mg capsule 2020-11 0 00:00: 00 08-13 04:59 :00 No [id number] 300mg Take 2 capsules by mouth 4 (four) times daily for 7 days. [facility] Vital Signs Vital Name Observation Time Observation Value Comments S dedepedro Systolic blood pressure 2022-01-13 22:52:00 126 mm[Hg] [facility] Diastolic blood pressure 2022-01-13 22:52:00 68 mm[Hg] [facility] Respiratory rate 2022-01-13 22:52:00 18 /min [facility] Oxygen saturation in Arterial blood by Pulse oximetry 2022-01-13 22:52:00 100 /min [facility] Heart rate 2022-01-13 20:07:00 82 /min [facility] Body temperature 2022-01-13 20:07:00 36.61 Aleah [facility] Body height 2022-01-13 20:07:00 69 cm [facility] Body weight 2022-01-13 20:07:00 74.844 kg [facility] BMI 2022-01-13 20:07:00 157.21 kg/m2 [facility] Heart rate 2021-08-05 15:00:00 50 /min [facility] Oxygen saturation in Arterial blood by Pulse oximetry 2021-08-05 15:00:00 100 /min [facility] Systolic blood pressure 2021-08-05 14:00:00 125 mm[Hg] [facility] Diastolic blood pressure 2021-08-05 14:00:00 63 mm[Hg] [facility] Body temperature 2021-08-05 12:40:00 36.44 Aleah [facility] Respiratory rate 2021-08-05 12:40:00 16 /min [facility] Body weight 2021-08-05 12:40:00 79.379 kg [facility] Procedures Procedure Date / Time Performed Performing Clinician Source LIPASE 2022-01-13 20:54:00 Rina Ventura [facility] COMP. METABOLIC PANEL ([id number]) 2022-01-13 20:54:00 Rina Ventura [facility] CBC WITH DIFF 2022-01-13 20:54:00 Rina Ventura [facility] URINALYSIS 2022-01-13 20:54:00 Rina Ventura [facility] RAPID INFLUENZA A/B 2022-01-13 20:54:00 Nayely Ventura [facility] NOTICE OF PRIVACY PRACTICES 2022-01-13 20:01:57 Doctor Unassigned, Grandin [facility] CONSENT/REFUSAL FOR DIAGNOSIS AND TREATMENT 2022-01-13 20:01:41 Doctor Unassigned, Grandin [facility] COMP. METABOLIC PANEL ([id number]) 2021-08-05 15:57:00 Giovanna Thapa [facility] AL ARTHROCENTESIS ASPIR&/INJ MAJOR JT/BURSA W/O US 2021-08-05 13:42:10 Giovanna Thapa [facility] CBC WITH DIFF 2021-08-05 13:24:00 Giovanna Thapa [facility] BODY FLUID DIRECT COUNT 2021-08-05 13:24:00 Landen Thapa [facility] XR KNEE <3 VW LEFT 2021-08-05 12:59:37 Giovanna Thapa [facility] NOTICE OF PRIVACY PRACTICES 2021-08-05 12:33:10 Doctor Unassigned, Grandin [facility] CONSENT/REFUSAL FOR DIAGNOSIS AND TREATMENT 2021-08-05 12:32:50 Doctor Unassigned, Grandin [facility] Encounters Start Date/Time End Date/Time Encounter Type Admission Type Attending Clinicians Care Facility Care Department Encounter ID Source 2023-11-11 15:49:30 2023-11-11 15:49:30 Outpatient [facility] [id number] Jorge Beckford 2023-08-30 09:16:32 2023-08-30 09:16:32 Outpatient [facility] [id number] Jorge Beckford 2022-01-13 15:08:00 2022-01-13 18:00:00 Emergency X RINA VENTURA [facility] ERT [id number] [facility] 2022-01-13 15:08:00 2022-01-13 18:00:00 Emergency Rina Ventura [facility] [id number] [facility] 2022-01-13 00:00:00 2022-01-13 00:00:00 Orders Only Doctor Unassigned, Grandin [facility] [id number] [facility] 2021-08-05 07:44:00 2021-08-05 12:16:00 Emergency Giovanna Thapa [facility] [id number] [facility] 2021-08-05 07:33:00 2021-08-05 07:33:00 Emergency X [facility] ERT [id number] [facility] Results Test Description Test Time Test Comments Results Result Co mments Source HERPES SIMPLEX 1/2 AB, IgG [id number] 03:05:31* Test Item Value Reference Range Interpretation Comme nts HERPES SIMPLEX 1 AB, IgG (test code = 36273) 6.170 INDEX SEE BELOW H INTERPRETATION U NITS RANGE ----- ----- NON-REACTIVE INDEX <1.000 REACTIVE INDEX >=1.000 HERPES SIMPLEX 2 AB, IgG (test code = 64479) 0.068 INDEX SEE BELOW INTERPRETATION U NITS RANGE ----- ----- NON-REACTIVE INDEX <1.000 REACTIVE INDEX >=1.000 UNLESS OTHERWISE INDICATED, ALL TESTING PERFORMED AT [facility] [address] [place] [id number] [employer]URAL GAS TRADER: SHANA LOUIS M.D. [place] NUMBER [id number] [facility] [place]. [id number] COMP. METABOLIC PANEL ([id number])2022-01-13 21:19:56* Test Item Value Reference Range Interpretation Comme nts NA (test code = 4396921664) 135 mmol/L 135-145 K (test code = 5255275518) 4.8 mmol/L 3.5-5.0 CL (test code = 7084562911) 103 mmol/L 98-108 CO2 TOTAL (test code = 2767137255) 24 mmol/L 23-31 AGAP (test code = 7390556758) 2-16 BUN (test code = 9336997811) 14 mg/dL 7-23 GLUCOSE (test code = 9092967566) 93 mg/dL 70-110 CREATININE (test code = 3229914838) 0.75 mg/dL 0.60-1.25 TOTAL BILI (test code = 9179289837) 0.4 mg/dL 0.1-1.1 CALCIUM (test code = 5003488266) 8.6 mg/dL 8.6-10.6 T PROTEIN (test code = 9315328838) 6.8 g/dL 6.3-8.2 ALBUMIN (test code = 5915089467) 4.4 g/dL 3.5-5.0 ALK PHOS (test code = 4804659070) 56 U/L 34-122 ALTv (test code = 1742-6) 21 U/L 5-50 AST(SGOT) (test code = 3219081434) 29 U/L 13-40 eGFR (test code = 5629820318) mL/min/1.73m2 JUAN (test code = JUAN) Association [...] or urine or abnormalities in imaging tests). [facility] 21:18:51* Test Item Value Reference Range Interpretation Comme nts LIPASE (test code = 1157064609) 97 U/L 0-220 Lab Interpretation (test cod e = 91182-2) Normal [facility] [id number] 21:07:51* Test Item Value Reference Range Interpretation Comme nts WBC (test code = 6690-2) See_Comment [Automated [employer]] The system which generated this result transmitted reference range: 4.20 - 10.70 10*3/?L. The reference range was not used to interpret this result as normal/abnormal. RBC (test code = 789-8) See_Comment [Automated [employer]] The system which generated this result transmitted [...] 34.8 g/dL 31.2-35.0 RDW-SD (test code = 63855-6) 40.4 fL 38.5-51.6 RDW-CV (test code = 788-0) 12.3 % 12.1-15.4 PLT (test code = 777-3) See_Comment [Automated messa ge] The system which generated this result transmitted reference range: 150 - 328 10*3/?L. The reference range was not used to interpret this result as normal/abnormal. MPV (test code = 87552-5) 9.5 fL 9.8-13.0 L NRBC/100 WBC (test code = 2517860784) See_Comment [Automated [employer] ssage] The system which generated this result transmitted reference range: 0.0 - 10.0 /100 WBCs. The reference range was not used to interpret this result as normal/abnormal. NRBC x10^3 (test code = 5900438542) <0.01 See_Comment [Automated messa ge] The system which generated this result transmitted reference range: 10*3/?L. The reference range was not used to interpret this result as normal/abnormal. GRAN MAT (NEUT) % (test code = 770-8) 47.5 % IMM GRAN % (test code = 3619177693) 0.20 % LYMPH % (test code = 736-9) 38.7 % MONO % (test code = 5905-5) 10.2 % EOS % (test code = 713-8) 3.2 % BASO % (test code = 706-2) 0.2 % GRAN MAT x10^3(ANC) (test code = 1838045977) 2.38 10*3/uL 1.99-6.95 IMM GRAN x10^3 (test code = 0813506160) <0.03 0.00-0.06 LYMPH x10^3 (test code = 731-0) 1.94 10*3/uL 1.09-3.23 MONO x10^3 (test code = 742-7) 0.51 10*3/uL 0.36-1.02 EOS x10^3 (test code = 711-2) 0.16 10*3/uL 0.06-0.53 BASO x10^3 (test code = 704-7) <0.03 0.01-0.09 Lab Interpretation (test code = 30911-0) Abnormal [facility]. METABOLIC PANEL ([id number])2021-08-05 16:30:23* Test Item Value Reference Range Interpretation Comme nts NA (test code = 3835879549) 140 mmol/L 135-145 K (test code = 3730786641) 3.9 mmol/L 3.5-5.0 CL (test code = 3786973549) 111 mmol/L 98-108 H CO2 TOTAL (test code = 8882073256) 22 mmol/L 23-31 L AGAP (test code = 9331162528) 2-16 BUN (test code = 8382516521) 12 mg/dL 7-23 GLUCOSE (test code = 6768872743) 88 mg/dL 70-110 CREATININE (test code = 5128177881) 0.54 mg/dL 0.60-1.25 L TOTAL BILI (test code = 7299508889) 0.4 mg/dL 0.1-1.1 CALCIUM (test code = 0142752399) 7.7 mg/dL 8.6-10.6 L T PROTEIN (test code = 8917958909) 6.0 g/dL 6.3-8.2 L ALBUMIN (test code = 4839684104) 3.5 g/dL 3.5-5.0 ALK PHOS (test code = 8369665770) 55 U/L 34-122 ALTv (test code = 1742-6) 19 U/L 5-50 AST(SGOT) (test code = 0167174287) 25 U/L 13-40 eGFR (test code = 6826412724) mL/min/1.73m2 JUAN (test code = JUAN) Association [...] imaging tests). Lab Interpretation (test code = 47287-8) Abnormal [facility] WITH [id number] 15:18:50* Test Item Value Reference Range Interpretation Comme nts WBC (test code = 6690-2) See_Comment [[employer]] The system which generated this result transmitted reference range: 4.20 - 10.70 10*3/?L. The reference range was not used to interpret this result as normal/abnormal. RBC (test code = 789-8) See_Comment L [Automated [employer]] The system which generated this result transmitted [...] 34.0 g/dL 31.2-35.0 RDW-SD (test code = 86790-2) 41.1 fL 38.5-51.6 RDW-CV (test code = 788-0) 12.4 % 12.1-15.4 PLT (test code = 777-3) See_Comment [Automated messa ge] The system which generated this result transmitted reference range: 150 - 328 10*3/?L. The reference range was not used to interpret this result as normal/abnormal. MPV (test code = 97048-3) 10.1 fL 9.8-13.0 NRBC/100 WBC (test code = 4298603746) See_Comment [Automated [employer] ssage] The system which generated this result transmitted reference range: 0.0 - 10.0 /100 WBCs. The reference range was not used to interpret this result as normal/abnormal. NRBC x10^3 (test code = 5759396184) <0.01 See_Comment [Automated messa ge] The system which generated this result transmitted reference range: 10*3/?L. The reference range was not used to interpret this result as normal/abnormal. GRAN MAT (NEUT) % (test code = 770-8) 70.3 % IMM GRAN % (test code = 9620298244) 0.30 % LYMPH % (test code = 736-9) 16.1 % MONO % (test code = 5905-5) 11.6 % EOS % (test code = 713-8) 1.5 % BASO % (test code = 706-2) 0.2 % GRAN MAT x10^3(ANC) (test code = 8990944669) 6.06 10*3/uL 1.99-6.95 IMM GRAN x10^3 (test code = 5934926647) 0.03 10*3/uL 0.00-0.06 LYMPH x10^3 (test code = 731-0) 1.39 10*3/uL 1.09-3.23 MONO x10^3 (test code = 742-7) 1.00 10*3/uL 0.36-1.02 EOS x10^3 (test code = 711-2) 0.13 10*3/uL 0.06-0.53 BASO x10^3 (test code = 704-7) <0.03 0.01-0.09 Lab Interpretation (test code = 49284-9) Abnormal [facility]"
[2025-01-22] MEDS ORDERED: DIPHENHYDRAMINE 12.5MG/5ML LIQ ONE (18:15)
[2025-01-22] MEDS ORDERED: FLUORESCEIN SODIUM 1 MG/WRAP ONE (18:21)
[2025-01-22] MEDS ORDERED: TETRACAINE HCL 0.5% 4ML OPTH ONE (18:21)
[2025-01-22] MEDS ORDERED: NA CHLORIDE 0.9% 500 ML ONE (18:21)
--- NOTE | 2025-01-22 19:35 | EDPHYS ---
Physician Documentation [facility] Name: Yumiko Ayala Age: 24 yrs Sex: Male : 2000 Arrival Date: 01/22/2025 Time: 18:10 Bed 19 Private MD: ED Physician Eddie Jones HPI: 01/22 18:21 This 24 yrs old Male presents to ER via Ambulatory with complaints of Eye Injury. sb4 18:21 Patient states that he had superglue get into his right eye at work today. 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 He states that he immediately flushed it out but states that he feels like it is sticking to his inner upper eyelid. Does report pain and foreign body sensation. Denies any contacts or glasses use. Historical: - Allergies: 18:19 No Known Allergies; aa5 - PMHx: 18:19 None; aa5 - PSHx: 18:19 None; aa5 - Immunization history:: Adult Immunizations unknown. - Infectious Disease History:: Denies. - Social history:: Smoking status: Reported history of juuling and/or vaping. ROS: 18:21 Constitutional: Negative for fever, chills, and weight loss, sb4 18:21 Eyes: Positive for foreign body sensation, pain, redness, swelling, tearing, of the iris of right eye, 18:21 All other systems are negative, Exam: 18:30 Constitutional: This is a well developed, well nourished patient who is awake, alert, sb4 and in no acute distress. Head/Face: Normocephalic, atraumatic. ENT: Mucous membranes moist. Respiratory: No increased work of breathing, no retractions or nasal flaring. Skin: Warm, dry with normal turgor. Normal color with no rashes, no lesions, and no evidence of cellulitis. 18:30 Eyes: Periorbital structures: appear normal, Pupils: equal, round, and reactive to light and accomodation, Extraocular movements: intact throughout, Conjunctiva: excoriated, that is mild, in the right eye, Lids and lashes: appear normal, 19:35 Eyes: Corneas: no acute changes, no evidence of abrasion, no foreign body, foreign sb4 body, is not appreciated, a fluorescein strip employed to appreciate the findings, Vital Signs: 18:17 BP 128 / 69; Pulse 61; Resp 18 S; Temp 97.9(TE); Pulse Ox 98% on R/A; Weight 81.65 kg aa5 (R); Height 5 ft. 9 in. (R); 19:30 BP 122 / 76; Pulse 80; Resp 18; Temp 98; Pulse Ox 100% on R/A; kj2 19:55 BP 106 / 55; Pulse 60; Resp 18; Temp 98.2; Pulse Ox 100% on R/A; kj2 18:17 Body Mass Index 26.58 (81.65 kg, 175.26 cm) aa5 Visual Acuity: 20:06 Left Eye Visual acuity 20/20, ; Right Eye Visual acuity 20/20, ; Both Eyes Visual kj2 acuity 20/20; Without Lenses; Procedures: 19:36 Eye Exam: Tetracaine. sb4 MDM: 18:15 Medical Screening Exam initiated sb4 19:36 Data reviewed: vital signs, nurses notes, and as a result, I will discharge patient. sb4 Counseling: I had a detailed discussion with the patient and/or guardian regarding the historical points, exam findings, and any diagnostic results supporting the discharge/admit diagnosis, the need for outpatient follow up, an opthalmologist, to return to the emergency department if symptoms worsen or persist or if there are any questions or concerns that arise at home. 01/22 19:04 Order name: Visual Acuity; Complete Time: 20:05 sb4 Administered Medications: 18:27 Drug: NS 0.9% IV 500 ml IV at bolus once; via sarah lens Route: IV; Rate: bolus; Site: ph Other; 19:57 Follow up: IV Status: Completed infusion; IV Intake: 500ml kj2 18:28 Drug: Tetracaine Ophthalmic Drops 0.5 % 1 drops Ophthalmic once Route: Ophthalmic; ph Site: right eye; 19:57 Follow up: Response: No adverse reaction kj2 19:34 Drug: Fluorescein Ophthalmic Strip 1 strip Ophthalmic once Route: Ophthalmic; Site: sb4 right eye; 19:57 Follow up: Response: No adverse reaction kj2 Disposition Summary: 01/22/25 19:35 Discharge Ordered Notes: Location: Home sb4 Problem: new sb4 Symptoms: have improved sb4 Condition: Stable sb4 Diagnosis - Foreign body in cornea, right eye - resolved sb4 Followup: sb4 - With: Alfred Jose MD - When: 2 - 3 days - Reason: Recheck today's complaints, Re-evaluation by your physician Discharge Instructions: - Discharge Summary Sheet sb4 - Corneal Abrasion, [id number]-gu-Wggt sb4 - Eye Foreign Body, [id number]-[id number] sb4 Forms: - Patient Portal Instructions sb4 - Leadership Thank You Letter sb4 Addendum: 01/24/2025 15:33 Co-signature as Attending Physician, Eddie Jones MD I agree with the assessment and c dumont plan of care. Signatures: Eddie Jones MD MD cha Calderon, Audri, RN RN aa5 Savannah Mathis RN RN Majo Sen, PA-C PA-C sb4 Marjan Beal RN kj2 Corrections: (The following items were deleted from the chart) 01/22 18:19 18:19 Social history: Smoking status: Patient denies any tobacco usage or history of. aa5 aa5
--- NOTE | 2025-01-22 19:35 | ER ---
Nurse's Notes [facility] Name: Yumiko Ayala Age: 24 yrs Sex: Male : 2000 Arrival Date: 01/22/2025 Time: 18:10 Bed 19 Private MD: Diagnosis: Foreign body in cornea, right eye-resolved Presentation: 01/22 18:17 Chief complaint: Patient states: "I got super glue in my right eye about 30 minutes aa5 ago". Onset of symptoms was January 22, 2025. 18:17 Acuity: ANGEL 4 aa5 18:17 Coronavirus screen: At this time, the client does not indicate any symptoms associated aa5 with coronavirus-19. Ebola Screen: Patient denies travel to an Ebola-affected area in the 21 days before illness onset. Initial Sepsis Screen: Does the patient meet any 2 criteria? No. Patient's initial sepsis screen is negative. Does the patient have a suspected source of infection? No. Patient's initial sepsis screen is negative. Risk Assessment: Do you want to hurt yourself or someone else? Patient reports no desire to harm self or others. 18:17 Method Of Arrival: Ambulatory aa5 Historical: - Allergies: 18:19 No Known Allergies; aa5 - PMHx: 18:19 None; aa5 - PSHx: 18:19 None; aa5 - Immunization history:: Adult Immunizations unknown. - Infectious Disease History:: Denies. - Social history:: Smoking status: Reported history of juuling and/or vaping. Screenin:28 [facility] ED Fall Risk Assessment (Adult) History of falling in the last 3 months, kj2 including since admission No falls in past 3 months (0 pts) Confusion or Disorientation No (0 pts) Intoxicated or Sedated No (0 pts) Impaired Gait No (0 pts) Mobility Assist Device Used No (0 pt) Altered Elimination No (0 pt) Score/Fall Risk Level 0 - 2 = Low Risk Maintained a safe environment, Hourly rounding (assess needs \\T\\ fall precautionary measures) done. Abuse screen: Denies threats or abuse. Denies injuries from another. Nutritional screening: No deficits noted. Tuberculosis screening: No symptoms or risk factors identified. Assessment: 18:27 General: Appears in no apparent distress. Behavior is calm, cooperative. Pain: kj2 Complains of pain in iris of right eye Pain currently is 6 out of 10 on a pain scale. Neuro: Level of Consciousness is awake, alert, obeys commands, Oriented to person, place, time. Cardiovascular: Patient's skin is warm and dry. Respiratory: Airway is patent Respiratory effort is unlabored. GI: No signs and/or symptoms were reported involving the gastrointestinal system. : No signs and/or symptoms were reported regarding the genitourinary system. 19:30 Reassessment: Patient appears in no apparent distress at this time. No changes from kj2 previously documented assessment. Patient and/or family updated on plan of care and expected duration. Pain level reassessed. 19:54 Reassessment: Patient appears in no apparent distress at this time. Patient and/or kj2 family updated on plan of care and expected duration. Pain level reassessed. Patient is alert, oriented x 3, equal unlabored respirations, skin warm/dry/pink. Vital Signs: 18:17 BP 128 / 69; Pulse 61; Resp 18 S; Temp 97.9(TE); Pulse Ox 98% on R/A; Weight 81.65 kg aa5 (R); Height 5 ft. 9 in. (R); 19:30 BP 122 / 76; Pulse 80; Resp 18; Temp 98; Pulse Ox 100% on R/A; kj2 19:55 BP 106 / 55; Pulse 60; Resp 18; Temp 98.2; Pulse Ox 100% on R/A; kj2 18:17 Body Mass Index 26.58 (81.65 kg, 175.26 cm) aa5 Visual Acuity: 20:06 Left Eye Visual acuity 20/20, ; Right Eye Visual acuity 20/20, ; Both Eyes Visual kj2 acuity 20/20; Without Lenses; ED Course: 18:14 Patient arrived in ED. sb4 18:15 [facility] Sen [facility]-C [facility] sb4 18:15 Eddie Jones MD is Attending Physician. sb4 18:17 Arm band placed on. aa5 18:18 Triage completed. aa5 18:26 Marjan Beal, ISABEL is Primary Nurse. kj2 18:28 Eye irrigation of right eye w/ Sarah lens with 500 ml normal saline, Patient tolerated ph well. 18:28 No provider procedures requiring assistance completed. kj2 18:30 Patient has correct armband on for positive identification. Bed in low position. Call kj2 light in reach. Provided Education on: call light. 19:35 Alfred Jose MD is Referral Physician. sb4 19:56 IV discontinued, intact, bleeding controlled, No redness/swelling at site. Pressure kj2 dressing applied. Administered Medications: 18:27 Drug: NS 0.9% IV 500 ml IV at bolus once; via sarah lens Route: IV; Rate: bolus; Site: Other; 19:57 Follow up: IV Status: Completed infusion; IV Intake: 500ml kj2 18:28 Drug: Tetracaine Ophthalmic Drops 0.5 % 1 drops Ophthalmic once Route: Ophthalmic; ph Site: right eye; 19:57 Follow up: Response: No adverse reaction kj2 19:34 Drug: Fluorescein Ophthalmic Strip 1 strip Ophthalmic once Route: Ophthalmic; Site: sb4 right eye; 19:57 Follow up: Response: No adverse reaction kj2 Medication: 19:56 VIS not applicable for this client. kj2 Intake: 19:57 IV: 500ml; Total: 500ml. kj2 Outcome: 19:35 Discharge ordered by MD. sb4 19:56 Discharged to home ambulatory, kj2 19:56 Condition: stable 19:56 Discharge instructions given to patient, Instructed on discharge instructions, follow up and referral plans. Demonstrated understanding of instructions, follow-up care, 20:06 Patient left the ED. kj2 Signatures: Julia Taveras RN RN aa5 Savannah Mathis RN RN Majo Bundy, PA-C PA-C sb4 Marjan Beal, ISABEL RN kj2 Corrections: (The following items were deleted from the chart) 18:19 18:19 Social history: Smoking status: Patient denies any tobacco usage or history of. aa5 aa5
[2025-01-22 20:25] VITALS: O2SAT 100
[2025-01-22 20:27] VITALS: BP 106/55; TEMP 98.2
== END 2025-01-22 20:06 | disposition home or self-care (01) ==
LOC: ER 18:10
DX: T15.01XA Foreign body in cornea, right eye, initial encounter (principal)
CPT/HCPCS: 96360; 99284; Q0163; J7040